=== PATIENT | female | born 1960 | race Caucasian/White ===

== ENCOUNTER 2019-01-04 13:33 | Emergency (ER) | payer OTHER ==
[~2019-01-04] VITALS: Ht 154.9 cm; Wt 49.9 kg
[2019-01-04] MEDS ORDERED: NEURONTIN600 MG PO (13:53)
[2019-01-04] MEDS ORDERED: NORCO 10-325 T1 EACH PO (13:54)
[2019-01-04] MEDS ORDERED: SYNTHROID150 MCG PO (13:54)
[2019-01-04 14:08] LABS: ABSOLUTE NEUTROPHILS 4.7 thou/uL (1.4-8.2); BASOPHILS 1.4 % (0.0-2.0); EOSINOPHILS 3.6 % (0.0-3.0); HEMATOCRIT 38.1 % (37.0-47.0); HEMOGLOBIN 13.1 gm/dL (12.0-15.0); LYMPHOCYTES 31.5 % (24.0-44.0); MCH 32.2 pg (26.0-34.0); MCHC 34.5 g/dL (28.0-37.0); MCV 93.2 fL (80.0-100.0); MONOCYTES 6.5 % (1.0-8.0); PLATELET COUNT 238 thou/uL (150-400); RBC 4.08 mil/uL (4.20-5.00); RDW 14.2 % (10.5-14.5); WBC 8.2 thou/uL (4.0-11.0)
[2019-01-04 14:19] LABS: POTASSIUM 3.8 mmol/L (3.5-5.1)
[2019-01-04 14:24] LABS: TOTAL BILIRUBIN 0.3 mg/dL (<0.1-1.0); TOTAL PROTEIN 7.2 g/dL (6.4-8.2)
[2019-01-04 14:49] LABS: URINE BILIRUBIN NEGATIVE (Negative); URINE BLOOD NEGATIVE (Negative); URINE CLARITY CLEAR; URINE COLOR YELLOW; URINE GLUCOSE-RANDOM* NEGATIVE (Negative); URINE KETONES NEGATIVE (Negative); URINE LEUKOCYTES-REFLEX NEGATIVE (Negative); URINE NITRITE-REFLEX NEGATIVE (Negative); URINE PROTEIN (DIPSTICK) NEGATIVE (Negative); URINE SPECIFIC GRAVITY <= 1.005 (1.005-1.035); URINE UROBILINOGEN 0.2 E.U./dl (0.2-1.0)
[2019-01-04] MEDS ORDERED: PERCOCET 7.5-31 EACH PO (15:28)
[2019-01-04 15:45] VITALS: BP 120/69
== END 2019-01-04 15:45 | disposition home or self-care (01) ==
LOC: ER 13:33
PROVIDERS: Physician Assistant
DX: R10.32 Left lower quadrant pain (principal); R11.2 Nausea with vomiting, unspecified; E03.9 Hypothyroidism, unspecified; N80.9 Endometriosis, unspecified; Z88.2 Allergy status to sulfonamides; Z85.038 Personal history of other malignant neoplasm of large intestine; Z90.49 Acquired absence of other specified parts of digestive tract; Z90.710 Acquired absence of both cervix and uterus